=== PATIENT | male | born 1995 | race Caucasian/White ===

== ENCOUNTER 2018-10-27 19:37 | Emergency (ER) | payer OTHER | END 2018-10-27 21:48 | disposition home or self-care (01) | LOC: FTE 19:37 | DX: H00.021 Hordeolum internum right upper eyelid (principal) | CPT/HCPCS: 99283; Z7502 ==

== ENCOUNTER 2018-11-21 12:08 | Emergency (ER) | payer SELFPAY | END 2018-11-21 12:25 | disposition home or self-care (01) | LOC: E/R 12:08 | DX: H00.11 Chalazion right upper eyelid (principal) | CPT/HCPCS: 99283 ==